=== PATIENT | male | born 1935 | race Caucasian/White ===

== ENCOUNTER → 2024-11-01 | Day surgery (SDC) | payer MEDICARE, MEDICAID ==
[~2024-11-01] VITALS: Ht 170.2 cm; Wt 64.4 kg
[~2024-11-01] MED LIST: ACETAMINOPHEN 1000MG/100ML 100 ML IV ONE; AMLO2.5T45 PO; ASPI-1497 PO; ATROPINE SULFATE 1MG/10ML SYR ONE; BIMA2.5D4 EACHEYE; BRIM.2 BOTHEYE; BUPIVACAINE HCL/PF 0.5% (5MG/ML) 10ML ONE; CEFAZOLIN SODIUM 1000MG/VIAL ONE; DORZ10DR9 EACHEYE; FAMOTIDINE 20MG/2ML VIAL IV ONE; FENTANYL CITRATE/PF 50MCG/ML 2ML VIAL ONE; FERR-71 PO; GLYCOPYRROLATE 0.2 MG/ML 2ML VIAL ONE; HYDROMORPHONE HCL/PF 1MG/ML INJ IV PRN; LEVO50TA8 PO; LOSA25TA26 PO; METOCLOPRAMIDE HCL 10MG/2ML VIAL ONE; OMEP20TA23 PO; ONDANSETRON HCL 4MG/2ML INJ IV PRN; ONDANSETRON HCL 4MG/2ML INJ ONE; PROPOFOL 200MG/20ML VIAL IV ONE; ROCURONIUM BROMIDE 10MG/ML VIAL 5ML IV ONE; SKIN ADHESIVE 0.7 GM EA TOP ONE; SODIUM CHLORIDE 0.9% 1,000 ML IV SCH; TAMS-54 PO
== END | disposition home or self-care (01) ==
LOC: OR 06:31
PROVIDERS: ATTEND Surgery
DX: K40.90 Unilateral inguinal hernia, without obstruction or gangrene, not specified as recurrent (principal); Z79.899 Other long term (current) drug therapy; Z98.890 Other specified postprocedural states; Z79.82 Long term (current) use of aspirin
CPT/HCPCS: 82962; 49650; C1781; J3010; J0131; J0461; J0665; J0690; J1308; J3490 ×2; J2765; J2405; J2704